=== PATIENT | female | born 1985 | race Caucasian/White ===

== ENCOUNTER → 2021-11-12 13:19 | Outpatient (CLI) | payer BC, SELFPAY ==
--- NOTE | ~2021-11-12 | MR_ITS ---
EXAMINATION: MR IAC wo/w con EXAM DATE: 11/12/2021 14:30 INDICATION: Tinnitus, dysfunction of right ear eustachian tube. TECHNIQUE: Multi-sequential, multiplanar MR images of the brain, brainstem, internal auditory canals were obtained without contrast. Whole brain sagittal T1, axial diffusion, gradient echo (T2*), T1, T 2, FLAIR sequences obtained. High resolution coronal 3-D FIESTA, coronal T1 FSE, axial T1 FSPGR of t he internal auditory canals. Patient was then injected with 10 cc Multihance contrast intravenously. Postcontrast axial and coronal T1 weighted whole brain, axial and coronal high resolution T1 IAC seq uences obtained. There is no prior study for comparison. FINDINGS: No evidence of mastoid or middle ear opacification. The 7th/8th cranial nerve complexes a re symmetric, normal in course and caliber. No cerebellopontine angle masses. Posterior fossa unrem arkable. There are no areas of restricted diffusion to suggest acute infarction. There is no acute hemorrhage seen on the T2*, a hemosiderin sensitive sequence. No intraparenchymal brain mass. The ventricles a re normal in size. There are no extra-axial collections. Flow voids are seen in the cerebral arteri es on the T2-weighted sequences consistent with their expected patency. The orbits are unremarkable. Soft tissue is unremarkable. There are no areas of abnormal enhancement on the post contrast imag es. IMPRESSION: 1. Unremarkable brain MRI/IAC examination. Reviewed, dictated and finalized at location G. GY DIRECTOR
[2021-11-12 13:45] LABS: Estimated Glomerular Filt Rate > 60
== END ==
PROVIDERS: Visit Provider Otolaryngology
DX: H93.11 Tinnitus, right ear (principal); H69.81 Other specified disorders of Eustachian tube, right ear
CPT/HCPCS: 70553; A9577

== ENCOUNTER 2022-07-08 14:59 | Emergency (ER) | payer BC, SELFPAY ==
--- NOTE | 2022-07-08 15:00 | ED.BACK ---
HPI - Back Pain/Injury General Chief Complaint: Back Pain/Injury Stated Complaint: back pain Time Seen by Provider: 07/08/22 15:00 Source: patient Mode of arrival: ambulatory Limitations: no limitations History of Present Illness HPI Narrative: Ms. Rodriguez is a 36-year-old female patient presenting to the clinic today with complaints of thoracic back pain x1 day. She reports no known injuries. She reports feeling as though her back is spasming in between her shoulder blades. She reports that the pain is worse with movement of her arms and she is also had some paresthesia to the left arm Related Data Home Medications Medication Instructions Recorded Confirmed multivitamin 1 tablet PO DAILY 01/27/22 07/08/22 Allergies Allergy/AdvReac Type Severity Reaction Status Date / Time No Known Allergies Allergy Verified 07/08/22 15:04 Review of Systems Review of Systems: Pertinent positives per HPI. Patient denies any fever, chills, rash, headache, visual changes, dizziness, cough, runny nose, sore throat, shortness of breath, chest pain, palpitations, nausea, vomiting, diarrhea, constipation, abdominal pain, or any urinary issues. [facility] Past Medical History Medical History (Updated 07/08/22 @ 15:16 by Farhat Duque APRN) Vaginal delivery Family History Family History Mother Family history of blood dyscrasia Hypertension Social History Social History Smoking status: Never smoker Second hand tobacco smoke exposure: No Alcohol intake: never Comments At the time of my signature, I reviewed and agree with the nursing past medical, surgical, social, and family history. There is no relevant family history pertinent to the patient complaint. Exam Narrative: General: Well-developed, well nourished, in no apparent distress Head: Normocephalic, atraumatic. Cardio: Regular rate and rhythm, s1 and s2 normal, no murmur appreciated. Resp: Clear to auscultation bilaterally, no rhonchi, rales, wheezing or rubs. Musculoskeletal: No deformity, non-tender to palpation, grossly normal range of motion, muscle strength strong and equal, peripheral pulse strong, no edema, no cyanosis, normal gait and station Course Course Emergency Course: Portions of this record may have been created with voice recognition software. Level of Care: Express Care Visit Vital Signs Vital signs: Vital signs reviewed MDM - Back Pain/Injury MDM Narrative Medical decision making narrative: At the time of visit patient is resting comfortably on the exam table. Toradol injection was offered in the clinic today and patient declined. I suspect she has a thoracic back strain/rhomboid strain. Supportive measures were discussed with the patient she voiced understanding of discharge instructions and agrees to treatment plan. Prescription for naproxen and Flexeril was sent to the pharmacy and sedation precautions were reviewed Differential Diagnosis Differential diagnosis: Likely thoracic back pain and other (Muscle strain) Discharge Plan Discharge Clinical Impression: Acute bilateral thoracic back pain, Muscle strain of upper back Patient Disposition: Home, Self-Care Condition: Stable Instructions: Antibiotic Form, Muscle Strain (ED), Back Pain (ED) Additional Instructions: Take any prescription medication only as prescribed.-Cyclobenzaprine and naproxen Be mindful of sedation precautions given to you if taking a muscle relaxer. May use heat or ice to the affected area Consider massage or chiropractor adjustment if this was discussed with provider May use blue emu, lidocaine patches, or asper cream to affected area- do not apply heat or ice directly over cream- can cause burn. Follow up with your PCP in 3-5 days if symptom persist. Prescriptions: New naproxen 500 mg tablet 500 mg PO BI
[2022-07-08 15:07] VITALS: BP 131/72; PULSE 73; RESP 16; TEMP 36.3; O2SAT 100
== END 2022-07-08 15:30 | disposition home or self-care (01) ==
PROVIDERS: Emergency Provider Nurse Practitioner Family
DX: M54.6 Pain in thoracic spine (principal); S29.012A Strain of muscle and tendon of back wall of thorax, initial encounter; T14.90XA Injury, unspecified, initial encounter
CPT/HCPCS: 99213; G0463